=== PATIENT | male | born 1950 | race Caucasian/White ===

== ENCOUNTER 2021-09-11 15:05 | Emergency (ER) | payer MEDICARE, OTHER ==
[2021-09-11] MEDS ORDERED: Sodium Chloride 0.9% 10 ML Syringe FLUSH PRN (17:27)
[2021-09-11 19:20] LABS: CORONAVIRUS COVID-19 NAA NEGATIVE (NEGATIVE)
== END 2021-09-11 22:31 | disposition home or self-care (01) ==
LOC: JD.ED 15:05
DX: B34.9 Viral infection, unspecified (principal); E87.1 Hypo-osmolality and hyponatremia; F17.210 Nicotine dependence, cigarettes, uncomplicated; Z20.822 Contact with and (suspected) exposure to COVID-19
CPT/HCPCS: 0240U; 36415; 71045; 80053; 81001; 83605; 84484; 85025; 85379; 86140; 87040; 99284; J3490

== ENCOUNTER 2022-12-31 04:35 | Emergency (ER) | payer MEDICARE, OTHER ==
[2022-12-31 06:34] LABS: APPEARANCE,URINE CLEAR (Clear); BILIRUBIN,URINE NEGATIVE (Negative); COLOR,URINE YELLOW (Yellow); GLUCOSE,URINE 2+ (Negative); KETONES,URINE 1+ (Negative); LEUKOCYTE ESTERASE,URINE NEGATIVE (Negative); NITRITE,URINE NEGATIVE (Negative); OCCULT BLOOD,URINE TRACE-INTACT (Negative); PH,URINE 6.5 (5.0-8.0); PROTEIN,URINE 2+ (Negative); UROBILINOGEN,URINE 0.2 (0.2-1.0)
[2022-12-31 06:51] LABS: BACTERIA,URINE FEW /hpf (FEW); EPITHELIAL CELLS,URINE 0-5 /hpf (0-5); MUCUS,URINE MODERATE /hpf (FEW); WBC,URINE 0-5 /hpf (0-5)
== END 2022-12-31 07:05 | disposition home or self-care (01) ==
LOC: JD.ED 04:35
DX: K59.00 Constipation, unspecified (principal); F17.210 Nicotine dependence, cigarettes, uncomplicated
CPT/HCPCS: 81001; 99283; 99284

== ENCOUNTER 2023-01-26 10:22 | Inpatient (IN) | payer MEDICARE ==
[2023-01-26] MEDS ORDERED: Lactated Ringers 1,000 ML IV ONE ×3 (10:54→15:10)
[2023-01-26] MEDS ORDERED: Ondansetron 4 MG/2 ML SDV IVPUSH ONE ×2 (10:54→15:44)
[2023-01-26 11:18] LABS: CORONAVIRUS COVID-19 NAA NEGATIVE (NEGATIVE); INFLUENZA A NAA NEGATIVE (NEGATIVE); RESPIRATORY SYNCYTIAL VIR NAA NEGATIVE (NEGATIVE)
[2023-01-26 11:22] LABS: BASOPHILS PERCENT AUTO 0.3 % (0.0-1.0); HEMATOCRIT 47.5 % (42.0-52.0); HEMOGLOBIN 16.6 gm/dl (14.0-18.0); IMMATURE GRAN ABSOLUTE AUTO 0.02 K/mm3 (0.00-0.05); IMMATURE GRAN PERCENT AUTO 0.3 % (0.0-0.4); LYMPHOCYTES ABSOLUTE AUTO 0.4 K/mm3 (1.0-4.8); LYMPHOCYTES PERCENT AUTO 6.8 % (24.0-44.0); MEAN CORPUSCULAR HEMOGLOBIN 30.9 pg (28.0-32.0); MEAN CORPUSCULAR HGB CONC 34.9 g/dl (32.0-36.0); MEAN CORPUSCULAR VOLUME 88.5 fl (83.0-99.0); MEAN PLATELET VOLUME 8.8 fl (9.4-12.4); MONOCYTES ABSOLUTE AUTO 0.3 K/mm3 (0.0-0.8); NEUTROPHILS ABSOLUTE AUTO 5.6 K/mm3 (1.8-7.7); NEUTROPHILS PERCENT AUTO 87.6 % (41.0-71.0); PLATELET COUNT,PLT 105 K/mm3 (150-400); RED BLOOD CELL COUNT 5.37 M/mm3 (4.52-5.90); WHITE BLOOD CELL COUNT,WBC 6.37 K/mm3 (3.9-11.3)
[2023-01-26 11:47] LABS: A/G RATIO 0.9 (1-2); ALBUMIN 3.7 g/dl (3.4-5.0); BILIRUBIN TOTAL 2.1 mg/dL (0.2-1.0); BUN/CREATININE RATIO 12.6 (14-18); CALCIUM 9.4 mg/dL (8.5-10.1); CREATININE 2.3 mg/dL (0.7-1.3); EST CRCL DRUG DOSING (CG) 24.31 mL/min
[2023-01-26 12:00] LABS: LACTIC ACID 4.2 mmol/L (0.4-2.0)
[2023-01-26] MEDS ORDERED: Iopamidol 612 MG/ML 100 ML Bottle IVPUSH ONE (12:17)
[2023-01-26] MEDS ORDERED: Sodium Chloride 0.9% 10 ML Syringe FLUSH ONE (12:17)
[2023-01-26 13:08] LABS: APPEARANCE,URINE CLEAR (Clear); BILIRUBIN,URINE NEGATIVE (Negative); COLOR,URINE DARK YELLOW (Yellow); GLUCOSE,URINE 3+ (Negative); KETONES,URINE TRACE (Negative); LEUKOCYTE ESTERASE,URINE NEGATIVE (Negative); NITRITE,URINE NEGATIVE (Negative); OCCULT BLOOD,URINE 2+ (Negative); PH,URINE 5.5 (5.0-8.0); PROTEIN,URINE 2+ (Negative); UROBILINOGEN,URINE 0.2 (0.2-1.0)
[2023-01-26 13:27] LABS: BACTERIA,URINE MODERATE /hpf (FEW); HYALINE CASTS,URINE 0-5 /lpf (0-5); MUCUS,URINE FEW /hpf (FEW)
[2023-01-26] MEDS ORDERED: Piperacillin/Tazobactam 4.5 GM in Sodium Chloride 0.9% 100 ML IV ONE (15:18)
[2023-01-26] MEDS ORDERED: Morphine 2 MG/ML SYRINGE IVPUSH ONE (15:22)
[2023-01-26] MEDS ORDERED: Sodium Chloride 0.9% 1,000 ML IV ONE (15:45)
[2023-01-26] MEDS ORDERED: Propofol 200 MG/20 ML SDV ONE (16:37)
[2023-01-26] MEDS ORDERED: Midazolam 1 MG/ML 2 ML SDV ONE (16:37)
[2023-01-26] MEDS ORDERED: Succinylcholine 200 MG/10 ML MDV ONE (16:37)
[2023-01-26] MEDS ORDERED: Lidocaine 1% 6 ML ONE (16:37)
[2023-01-26] MEDS ORDERED: fentaNYL 250 MCG/5 ML SDV ONE (16:37)
[2023-01-26] MEDS ORDERED: Ondansetron 4 MG/2 ML SDV ONE (16:38)
[2023-01-26] MEDS ORDERED: Rocuronium 50 MG/5 ML Vial ONE (16:39)
[2023-01-26] MEDS ORDERED: Bupivacaine 0.5% 30 ML SDV ONE (17:13)
[2023-01-26] MEDS ORDERED: EPINEPHrine 1 MG/ML SDV ONE (17:13)
[2023-01-26] MEDS ORDERED: Sugammadex Sodium 200 MG/2 ML VIAL ONE (18:03)
[2023-01-26] MEDS ORDERED: ceFAZolin 1 GM Vial ONE (18:33)
[2023-01-26] MEDS ORDERED: HYDROmorphone 0.5 MG/0.5 ML Syringe IVPUSH PRN ×2 (19:04→19:22)
[2023-01-26] MEDS ORDERED: fentaNYL 100 MCG/2 ML SDV IVPUSH PRN (19:04)
[2023-01-26] MEDS ORDERED: Ondansetron 4 MG/2 ML SDV IVPUSH PRN (19:22)
[2023-01-26] MEDS ORDERED: Ketorolac 15 MG/ML SDV IVPUSH PRN (19:22)
[2023-01-26] MEDS ORDERED: ceFAZolin 2 GM in Sodium Chloride 0.9% 50 ML IV SCH (19:30)
[2023-01-26] MEDS ORDERED: metroNIDAZOLE/Normal Saline 500 MG in Premix Bag 1 BAG IV SCH (20:00)
[2023-01-26] MEDS: Insulin Lispro 100 Unit/ML 3 ML KwikPen SUBCUT SCH (21:28)
[2023-01-26] MEDS: Lactated Ringers 1,000 ML IV SCH (21:30)
[2023-01-26] MEDS: metroNIDAZOLE/Normal Saline 500 MG in Premix Bag 1 BAG IV SCH (22:34)
[2023-01-27] MEDS: metroNIDAZOLE/Normal Saline 500 MG in Premix Bag 1 BAG IV SCH ×2 (05:57→13:33)
[2023-01-27] MEDS: Lactated Ringers 1,000 ML IV SCH (06:03)
[2023-01-27 06:41] LABS: BASOPHILS PERCENT AUTO 0.4 % (0.0-1.0); HEMATOCRIT 40.3 % (42.0-52.0); HEMOGLOBIN 13.9 gm/dl (14.0-18.0); IMMATURE GRAN ABSOLUTE AUTO 0.03 K/mm3 (0.00-0.05); IMMATURE GRAN PERCENT AUTO 0.5 % (0.0-0.4); LYMPHOCYTES ABSOLUTE AUTO 0.8 K/mm3 (1.0-4.8); LYMPHOCYTES PERCENT AUTO 13.7 % (24.0-44.0); MEAN CORPUSCULAR HEMOGLOBIN 30.9 pg (28.0-32.0); MEAN CORPUSCULAR HGB CONC 34.5 g/dl (32.0-36.0); MEAN CORPUSCULAR VOLUME 89.6 fl (83.0-99.0); MONOCYTES ABSOLUTE AUTO 0.4 K/mm3 (0.0-0.8); MONOCYTES PERCENT AUTO 6.7 % (0.0-8.0); NEUTROPHILS ABSOLUTE AUTO 4.4 K/mm3 (1.8-7.7); NEUTROPHILS PERCENT AUTO 78.7 % (41.0-71.0); PLATELET COUNT,PLT 94 K/mm3 (150-400); WHITE BLOOD CELL COUNT,WBC 5.53 K/mm3 (3.9-11.3)
[2023-01-27 07:15] LABS: POTASSIUM,K 4.1 mEq/L (3.5-5.1)
[2023-01-27 07:16] LABS: A/G RATIO 0.7 (1-2); ALBUMIN 2.7 g/dl (3.4-5.0); ANION GAP 15.1 (5-15); BILIRUBIN TOTAL 1.2 mg/dL (0.2-1.0); CALCIUM 8.6 mg/dL (8.5-10.1); CREATININE 1.4 mg/dL (0.7-1.3); EST CRCL DRUG DOSING (CG) 39.94 mL/min; PROTEIN TOTAL,TP 6.8 g/dl (6.4-8.2)
[2023-01-27] MEDS: Insulin Lispro 100 Unit/ML 3 ML KwikPen SUBCUT SCH ×2 (07:36→11:36)
[2023-01-27] MEDS ORDERED: ceFAZolin 2 GM in Sodium Chloride 0.9% 50 ML IV SCH (09:00)
[2023-01-27] MEDS ORDERED: atorvaSTATin 20 MG Tab PO SCH (09:00)
[2023-01-27 09:28] LABS: SLIDE REVIEW ABNORMAL SMEAR
[2023-01-27 12:43] LABS: HEMOGLOBIN A1C 8.8 %
== END 2023-01-27 15:50 | disposition home or self-care (01) | DRG 399 ==
LOC: JD.ED 10:22 → JD.SDS 17:51 → JD.MS 20:41
PROVIDERS: ADMIT Specialist; ATTEND Specialist
PROC: 0DTJ4ZZ Resection of Appendix, Percutaneous Endoscopic Approach (ICD-10-PCS; principal; 2023-01-26 18:30)
DX: K35.80 Unspecified acute appendicitis (principal); K59.09 Other constipation; E11.65 Type 2 diabetes mellitus with hyperglycemia; M19.90 Unspecified osteoarthritis, unspecified site; Z90.89 Acquired absence of other organs; Z79.4 Long term (current) use of insulin; Z11.52 Encounter for screening for COVID-19; Z98.890 Other specified postprocedural states
CPT/HCPCS: 00840; 0241U; 36415; 74177; 74177-26; 80053; 81001; 82947; 83036; 83605; 83690; 85025; 87040; 94762; 96361; 96365; 96375; 96376; 99100; 99140; 99285; 99285-25; A9270-GY; C1713; J0171; J0330; J0690; J1815; J1836; J2250; J2270; J2405; J2543; J2704; J3010; J3490; J7030; J7120; Q9967